=== PATIENT | female | born 1970 | race Caucasian/White ===

== ENCOUNTER 2017-07-01 19:55 | Emergency (ER) | payer BC ==
[~2017-07-01] VITALS: Ht 154.9 cm; Wt 57.6 kg
[2017-07-01 20:18] VITALS: BP_SYST 131
[2017-07-01] MEDS ORDERED: PREN-89 PO (20:24)
[2017-07-01 21:22] LABS: BASOPHILS # (AUTO) 0.1 K/uL (0.0-0.2); BASOPHILS % (AUTO) 0.5 % (0.0-2.0); CALCIUM 9.2 mg/dL (8.4-11.0); CREATININE 0.59 mg/dL (0.55-1.30); EOSINOPHILS # (AUTO) 0.1 K/uL (0.0-0.4); EOSINOPHILS % (AUTO) 1.2 % (0.0-4.0); HEMATOCRIT 39.9 % (36-48); HEMOGLOBIN 13.1 g/dL (12.0-16.0); LYMPHOCYTES # (AUTO) 1.9 K/uL (1.0-5.5); LYMPHOCYTES % (AUTO) 18.2 % (20.5-51.5); MEAN CORPUSCULAR HEMOGLOBIN 30 pg (27-31); MEAN CORPUSCULAR HGB CONC 33 % (32-36); MEAN CORPUSCULAR VOLUME 91 fL (79.0-98.0); MONOCYTES # (AUTO) 0.6 K/uL (0.0-1.0); MONOCYTES % (AUTO) 5.8 % (1.7-9.3); NEUTROPHILS # (AUTO) 7.8 K/uL (1.8-7.7); NEUTROPHILS % (AUTO) 74.3 % (40.0-70.0); PLATELET COUNT (AUTO) 263 K/uL (130-430); POTASSIUM 3.6 mmol/L (3.5-5.1); RED BLOOD CELL COUNT(AUTO) 4.37 MIL/uL (4.2-6.2); RED CELL DISTRIBUTION WIDTH 12.6 % (9.0-15.0); WHITE BLOOD COUNT (AUTO) 10.5 K/uL (4.8-10.8)
[2017-07-01 21:23] LABS: PROTHROMBIN TIME 11.1 SECS (9.5-12.5)
[2017-07-01 21:36] LABS: BILIRUBIN,URINE NEGATIVE (NEGATIVE); BLOOD, URINE 3+ (NEGATIVE); CLARITY/URINE CLOUDY (CLEAR); COLOR,URINE RED (YELLOW); GLUCOSE,URINE NEGATIVE (NEGATIVE); KETONES,URINE TRACE (NEGATIVE); LEUKOCYTE ESTERASE ,URINE TRACE (NEGATIVE); PROTEIN URINE 3+ (NEGATIVE)
[2017-07-01 21:42] LABS: NITRITE, URINE NEGATIVE (NEGATIVE)
[2017-07-01 21:47] LABS: BACTERIA,URINE FEW /HPF (None Seen); MUCUS,URINE None Seen /LPF (None Seen); RBC,URINE >100 /HPF (0-3)
[2017-07-01 21:48] LABS: TOTAL BILIRUBIN 0.3 mg/dL (0.0-1.0)
[2017-07-01 23:20] VITALS: BP_SYST 125
== END 2017-07-01 23:20 | disposition home or self-care (01) ==
LOC: SED 19:55
DX: O03.4 Incomplete spontaneous abortion without complication (principal); Z3A.09 9 weeks gestation of pregnancy
CPT/HCPCS: 36415; 76801; 76817; 80053; 81000-TC; 81025; 84702-TC; 85025; 85610-TC; 86886; 86900; 86901; 99285

== ENCOUNTER 2017-08-10 07:55 | Day surgery (SDC) | payer BC ==
[~2017-08-10] VITALS: Ht 154.9 cm; Wt 55.8 kg
[~2017-08-10 07:55] MED LIST: PREN-89 PO
[2017-08-10] MEDS ORDERED: BUPIVACAINE /PF 0.5% 30 ML VIAL INJ ONE (10:12)
[2017-08-10] MEDS ORDERED: NS IRRIG SOLN 1000 ML IR ONE (10:12)
[2017-08-10] MEDS ORDERED: LR 1,000 ML IV.SOLN IV ONE (10:12)
[2017-08-10] MEDS ORDERED: PROPOFOL 200MG/ 20ML VIAL (DIPRIVAN) IV ONE (10:12)
[2017-08-10] MEDS ORDERED: ROCURONIUM BROMIDE 10 MG/ML (ZEMURON) IV ONE (10:12)
[2017-08-10] MEDS ORDERED: SEVOFLURANE 15 MIN GAS INH ONE (10:12)
[2017-08-10] MEDS ORDERED: NS 1000 ML BAG IV ONE (10:12)
[2017-08-10] MEDS ORDERED: METOCLOPRAMIDE HCL 10 MG/2 ML VIAL IVP ONE (10:12)
[2017-08-10] MEDS ORDERED: DEXAMETHASONE SOD PHOSPHATE 4 MG/ML VIAL IVP ONE (10:12)
[2017-08-10] MEDS ORDERED: fentaNYL CITRATE/PF 100 MCG/2 ML AMP IVP ONE (10:12)
[2017-08-10] MEDS ORDERED: MIDAZOLAM HCL 5 MG/5 ML VIAL IVP ONE (10:12)
[2017-08-10] MEDS ORDERED: KETOROLAC TROMETHAMINE 30 MG VIAL IVP ONE (10:12)
[2017-08-10] MEDS ORDERED: LR 1,000 ML IV ONE (10:35)
[2017-08-10] MEDS ORDERED: fentaNYL CITRATE/PF 100 MCG/2 ML AMP IVP PRN (10:45)
[2017-08-10] MEDS ORDERED: ePHEDrine sulfate 50 MG/ML VIAL IVP PRN (10:45)
[2017-08-10] MEDS ORDERED: KETOROLAC TROMETHAMINE 30 MG VIAL IM PRN (10:45)
[2017-08-10] MEDS ORDERED: NALBUPHINE HCL 10 MG/ML AMP IVP PRN (10:45)
[2017-08-10] MEDS ORDERED: NALOXONE HCL 0.4 MG/ML AMP (NARCAN) IVP PRN (10:45)
[2017-08-10] MEDS ORDERED: ONDANSETRON HCL 4 MG/2 ML VIAL IVP PRN ×2 (10:45)
[2017-08-10] MEDS ORDERED: DIPHENHYDRAMINE INJ 50 MG/ML VIAL IVP PRN (10:45)
[2017-08-10] MEDS ORDERED: OXYCODONE/ACETAMINOPHEN 5-325 TABLET PO PRN (11:15)
[2017-08-10] MEDS ORDERED: HYDROmorphone 2 MG TAB PO PRN (11:15)
[2017-08-10] MEDS ORDERED: PROMETHAZINE HCL 25 MG/ML AMP IM PRN (11:15)
[2017-08-10 12:05] VITALS: BP_SYST 119
[2017-08-11] MEDS ORDERED: ONDANSETRON HCL 4 MG/2 ML VIAL IVP PRN (05:00)
== END 2017-08-10 14:10 | disposition home or self-care (01) ==
LOC: SDS 07:55 → SMU 07:55 → SDS 14:10
PROVIDERS: ATTEND Obstetrics & Gynecology
DX: N83.291 Other ovarian cyst, right side (principal)
CPT/HCPCS: 36415; 58661; 86886; 86900; 86901; 88302; 88305; C1727; J1100; J1885; J2250; J2704; J2765; J3010; J3490; J7030; J7120